=== PATIENT | male | born 1990 | race Hispanic/Latino ===

== ENCOUNTER 2018-04-01 23:09 | Emergency (ER) | payer BC, OTHER ==
[~2018-04-01] VITALS: Ht 170.2 cm; Wt 90.7 kg
[2018-04-01 23:41] LABS: BILIRUBIN,URINE NEGATIVE (NEGATIVE); CLARITY,URINE CLEAR (CLEAR); COLOR,URINE YELLOW (YELLOW); KETONES,URINE NEGATIVE (NEGATIVE); LEUKOCYTE ESTERASE ,URINE NEGATIVE (NEGATIVE); NITRITE,URINE NEGATIVE (NEGATIVE); PROTEIN,URINE DIPSTICK NEGATIVE (NEGATIVE); URINE UROBILINOGEN 0.2 mg/dL (0.2 - 1)
[2018-04-01 23:56] LABS: WBC,URINE (MAN) 0-5 /HPF (0-5)
[2018-04-01 23:57] LABS: BACTERIA,URINE MODERATE /HPF; EPITHELIAL CELLS,URINE FEW /LPF
--- NOTE | 2018-04-02 01:17 | Diagnostic Imaging Report ---
EXAM: US TESTICULAR, US TESTICULAR DOPPLER LTD DATE: 04/01/2018 12:00 AM INDICATION: Left testicular pain, patient sustained injury after fall at work in October COMPARISON: None TECHNIQUE: Grayscale and color Doppler images of the testicles and scrotal contents were obtained. Duplex imaging with spectral waveform analysis was used to assess the bilateral testicular arterial and venous flow. FINDINGS: RIGHT: The right testicle measures 4.3 x 2 x 2.7 cm. No testicular masses. Normal flow by color doppler and spectral waveform analysis of the right arterial and venous testicular flow. Normal appearance of the epididymis. Small right hydrocele. LEFT: The left testicle is enlarged and heterogeneous with multiple areas of hypo and hyper echogenicity and cystic spaces. The testicle measures 5.9 x 3.8 x 5 cm. The epididymis is poorly visualized. In spite of a heterogeneous appearance of the testicle, normal color flow and spectral waveform analysis of arterial and venous flow is identified. Small right hydrocele. IMPRESSION: Appearance of left testicle is consistent with prior testicular fracture. There is persistent testicular venous flow to the left testicle both centrally and peripherally. Signed by: Dr. Elena Amaral M.D. on 04/02/2018 1:14 AM
[2018-04-02 01:39] VITALS: BP 130/90
== END 2018-04-02 01:43 | disposition home or self-care (01) ==
LOC: ER 23:09
DX: N50.812 Left testicular pain (principal)
CPT/HCPCS: 76870; 81001; 93976; 99283

== ENCOUNTER 2018-12-14 23:09 | Emergency (ER) | payer BC ==
[~2018-12-14] VITALS: Ht 170.2 cm; Wt 90.7 kg
--- OUTSIDE RECORDS SUMMARY | 2018-12-14 23:13 | XMS REPORT | Clinical Summary ---
Author Author [facility] Organization [facility] Address Unknown Phone Unavailable Care Team Providers Care Dispatcher [employer] Disposal Name Role Phone Pcp, No PCP Unavailable Allergies Comments Active Allergy Reactions Severity Noted Date TOLD WHEN HE WAS A KID. Cefprozil Rash Low 05/29/2018 Medications End Date Status Medication Sig Dispensed Refills Start Date 06/05/2018 sulfamethoxazole-trimetho Take 1 tablet 10 tablet 0 prim (BACTRIM DS) 800-160 (160 mg of 8 mg per tablet trimethoprim total) by mouth 2 (two) times daily for 5 days. 06/10/2018 acetaminophen-codeine Take 1 tablet 30 tablet 0 (TYLENOL #3) 300-30 mg by mouth 8 per tablet every 4 (four) hours as needed for up to 10 days. Max Daily Amount: 6 tablets 06/10/2018 docusate sodium (COLACE) Take 1 30 capsule 0 100 MG capsule capsule (100 8 mg total) by mouth 2 (two) times daily for 10 days. Active Problems Problem Noted Date Testicular disorder 05/30/2018 Testis mass 05/30/2018 Encounters Care Team Description Date Type Specialty 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 Hospital Computed Tomography Encounter 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 Outside Orders Central Scheduling Hollis Duque MD 05/30/2018 Anesthesia Event Steve Ba MD ORCHIECTOMY 05/30/2018 Surgery Steve Ba MD 05/30/2018 [facility] General Internal Medicine - Encounter 05/31/2018 Ivon Mason Preadmit Phone 05/29/2018 Hospital Pre-Admission Testing Encounter after 12/13/2017 Social History Date Tobacco Use Types Packs/Day Years Used Never Smoker Smokeless Tobacco: Never Used Alcohol Use Drinks/Week oz/Week Comments Yes SOCIALLY Sex Assigned at Date Recorded Not on file Industry Job Start Date Occupation Not on file Not on file Not on file Travel End Travel History Travel Start No recent travel history available. Last Filed Vital Signs Time Taken Vital Sign Reading 05/31/2018 11:35 AM CDT Blood Pressure 111/64 05/31/2018 11:35 AM CDT Pulse 84 05/31/2018 11:35 AM CDT Temperature 36.1 C (96.9 F) 05/31/2018 11:35 AM CDT Respiratory Rate 18 05/31/2018 11:35 AM CDT Oxygen Saturation 98% - Inhaled Oxygen - Concentration 05/30/2018 12:58 PM CDT Weight 89.5 kg (197 lb 5 oz) 05/30/2018 12:58 PM CDT Height 170.2 cm (5' 7.01") 05/30/2018 12:58 PM CDT Body Mass Index 30.9 Plan of Treatment Not on file Procedures Comments Procedure Name Priority Date/Time Associated Diagnosis CT CHEST WITH IV CONTRAST Routine 10/05/2018 Germ cell tumor of testis 8:26 AM CERTIFIED ALCOHOL DRUG COUNSELOR (HCC) CT ABDOMEN/PELVIS WITH IV Routine 10/05/2018 Germ cell tumor of testis CONTRAST 8:26 AM CERTIFIED ALCOHOL DRUG COUNSELOR (HCC) TISSUE EXAM AP Routine 05/30/2018 4:23 PM CDT ORCHIECTOMY 05/30/2018 Testicular disorder 3:00 PM CDT Malignant neoplasm of testis, unspecified laterality, unspecified whether descended or undescended (HCC) after 12/13/2017 Results * CT Abdomen/Pelvis with IV Contrast (10/05/2018 8:26 AM CERTIFIED ALCOHOL DRUG COUNSELOR) Specimen Narrative Performed At [facility] EXAM: CT Chest, Abdomen and Pelvis WITH contrast INDICATION: Testicular [id number] COMPARISON: CT May 29, 2018 TECHNIQUE: Chest, abdomen and pelvis were scanned utilizing a multidetector helical scanner from the lung apex to the pubic symphysis after administration of IV contrast. Coronal and sagittal reformations were obtained. Routine protocol was performed. Scan was performed when during portal venous phase. IV CONTRAST: 150 mL of Omnipaque 300 ORAL CONTRAST: Water COMPLICATIONS: None RADIATION DOSE: Total DLP: 1122 mGy*cm Estimated effective dose: (DLP x 0.015 x size factor) mSv CTDIvol has been reviewed. It is below the limits set by the Radiation Protocol Committee (RPC). FINDINGS: LINES and TUBES: None. LUNGS AND AIRWAYS:Calcified granuloma left lower lobe. No metastatic nodule.Airways are normal. PLEURA: The pleural spaces are clear. HEART AND MEDIASTINUM: The thyroid gland is normal.No mediastinal, hilar or axillary lymphadenopathy.The heart is normal in size. There is no pericardial effusion. HEPATOBILIARY:No focal hepatic lesions.No biliary ductal dilation. GALLBLADDER: No radio-opaque stones or sludge.No wall thickening. SPLEEN: No splenomegaly. PANCREAS: No focal masses or ductal dilatation. ADRENALS: No adrenal nodules KIDNEYS/URETERS: Kidneys enhance symmetrically.No hydronephrosis. No cystic or solid mass lesions.No stones. GI TRACT: No abnormal distention, wall thickening, or bowel obstruction. Appendix is normal. PELVIC ORGANS/BLADDER: Unremarkable. LYMPH NODES: No lymphadenopathy. VESSELS: Unremarkable. PERITONEUM / RETROPERITONEUM: No free air or fluid. BONES: Unremarkable. SOFT TISSUES: Post surgical change left inguinal region. IMPRESSION: 1.No lymphadenopathy or metastasis Signed: Efrem Staley MD Report Verified Date/Time:10/05/2018 09:14:33 Procedure Note Interface, External Ris In - 10/05/2018 9:16 AM CERTIFIED ALCOHOL DRUG COUNSELOR FINAL REPORT EXAM: CT Chest, Abdomen and Pelvis WITH contrast INDICATION: Testicular cancer C62.90 COMPARISON: CT May 29, 2018 TECHNIQUE: Chest, abdomen and pelvis were scanned utilizing a multidetector helical scanner from the lung apex to the pubic symphysis after administration of IV contrast. Coronal and sagittal reformations were obtained. Routine protocol was performed. Scan was performed when during portal venous phase. IV CONTRAST: 150 mL of Omnipaque 300 ORAL CONTRAST: Water COMPLICATIONS: None RADIATION DOSE: Total DLP: 1122 mGy*cm Estimated effective dose: (DLP x 0.015 x size factor) mSv CTDIvol has been reviewed. It is below the limits set by the Radiation Protocol Committee (RPC). FINDINGS: LINES and TUBES: None. LUNGS AND AIRWAYS: Calcified granuloma left lower lobe. No metastatic nodule. Airways are normal. PLEURA: The pleural spaces are clear. HEART AND MEDIASTINUM: The thyroid gland is normal. No mediastinal, hilar or axillary lymphadenopathy. The heart is normal in size. There is no pericardial effusion. HEPATOBILIARY: No focal hepatic lesions. No biliary ductal dilation. GALLBLADDER: No radio-opaque stones or sludge. No wall thickening. SPLEEN: No splenomegaly. PANCREAS: No focal masses or ductal dilatation. ADRENALS: No adrenal nodules KIDNEYS/URETERS: Kidneys enhance symmetrically. No hydronephrosis. No cystic or solid mass lesions. No stones. GI TRACT: No abnormal distention, wall thickening, or bowel obstruction. Appendix is normal. PELVIC ORGANS/BLADDER: Unremarkable. LYMPH NODES: No lymphadenopathy. VESSELS: Unremarkable. PERITONEUM / RETROPERITONEUM: No free air or fluid. BONES: Unremarkable. SOFT TISSUES: Post surgical change left inguinal region. IMPRESSION: 1.No lymphadenopathy or metastasis Signed: Efrem Staley MD Report Verified Date/Time: 10/05/2018 09:14:33 Performing Organization Address City/State/Zipcode Phone Number [facility] * CT Chest with IV Contrast (10/05/2018 8:26 AM CERTIFIED ALCOHOL DRUG COUNSELOR) Specimen Narrative Performed At FINAL REPORT [facility] EXAM: CT Chest, Abdomen and Pelvis WITH contrast INDICATION: Testicular [id number] COMPARISON: CT May 29, 2018 TECHNIQUE: Chest, abdomen and pelvis were scanned utilizing a multidetector helical scanner from the lung apex to the pubic symphysis after administration of IV contrast. Coronal and sagittal reformations were obtained. Routine protocol was performed. Scan was performed when during portal venous phase. IV CONTRAST: 150 mL of Omnipaque 300 ORAL CONTRAST: Water COMPLICATIONS: None RADIATION DOSE: Total DLP: 1122 mGy*cm Estimated effective dose: (DLP x 0.015 x size factor) mSv CTDIvol has been reviewed. It is below the limits set by the Radiation Protocol Committee (RPC). FINDINGS: LINES and TUBES: None. LUNGS AND AIRWAYS:Calcified granuloma left lower lobe. No metastatic nodule.Airways are normal. PLEURA: The pleural spaces are clear. HEART AND MEDIASTINUM: The thyroid gland is normal.No mediastinal, hilar or axillary lymphadenopathy.The heart is normal in size. There is no pericardial effusion. HEPATOBILIARY:No focal hepatic lesions.No biliary ductal dilation. GALLBLADDER: No radio-opaque stones or sludge.No wall thickening. SPLEEN: No splenomegaly. PANCREAS: No focal masses or ductal dilatation. ADRENALS: No adrenal nodules KIDNEYS/URETERS: Kidneys enhance symmetrically.No hydronephrosis. No cystic or solid mass lesions.No stones. GI TRACT: No abnormal distention, wall thickening, or bowel obstruction. Appendix is normal. PELVIC ORGANS/BLADDER: Unremarkable. LYMPH NODES: No lymphadenopathy. VESSELS: Unremarkable. PERITONEUM / RETROPERITONEUM: No free air or fluid. BONES: Unremarkable. SOFT TISSUES: Post surgical change left inguinal region. IMPRESSION: 1.No lymphadenopathy or metastasis Signed: Efrem Staley MD Report Verified Date/Time:10/05/2018 09:14:33 Procedure Note Interface, External Ris In - 10/05/2018 9:16 AM CERTIFIED ALCOHOL DRUG COUNSELOR FINAL REPORT EXAM: CT Chest, Abdomen and Pelvis WITH contrast INDICATION: Testicular cancer C62.90 COMPARISON: CT May 29, 2018 TECHNIQUE: Chest, abdomen and pelvis were scanned utilizing a multidetector helical scanner from the lung apex to the pubic symphysis after administration of IV contrast. Coronal and sagittal reformations were obtained. Routine protocol was performed. Scan was performed when during portal venous phase. IV CONTRAST: 150 mL of Omnipaque 300 ORAL CONTRAST: Water COMPLICATIONS: None RADIATION DOSE: Total DLP: 1122 mGy*cm Estimated effective dose: (DLP x 0.015 x size factor) mSv CTDIvol has been reviewed. It is below the limits set by the Radiation Protocol Committee (RPC). FINDINGS: LINES and TUBES: None. LUNGS AND AIRWAYS: Calcified granuloma left lower lobe. No metastatic nodule. Airways are normal. PLEURA: The pleural spaces are clear. HEART AND MEDIASTINUM: The thyroid gland is normal. No mediastinal, hilar or axillary lymphadenopathy. The heart is normal in size. There is no pericardial effusion. HEPATOBILIARY: No focal hepatic lesions. No biliary ductal dilation. GALLBLADDER: No radio-opaque stones or sludge. No wall thickening. SPLEEN: No splenomegaly. PANCREAS: No focal masses or ductal dilatation. ADRENALS: No adrenal nodules KIDNEYS/URETERS: Kidneys enhance symmetrically. No hydronephrosis. No cystic or solid mass lesions. No stones. GI TRACT: No abnormal distention, wall thickening, or bowel obstruction. Appendix is normal. PELVIC ORGANS/BLADDER: Unremarkable. LYMPH NODES: No lymphadenopathy. VESSELS: Unremarkable. PERITONEUM / RETROPERITONEUM: No free air or fluid. BONES: Unremarkable. SOFT TISSUES: Post surgical change left inguinal region. IMPRESSION: 1.No lymphadenopathy or metastasis Signed: Efrem Staley MD Report Verified Date/Time: 10/05/2018 09:14:33 Performing Organization Address City/State/Zipcode Phone Number [facility] * Tissue Exam (05/30/2018 4:23 PM CDT) Case Report Surgical Pathology [facility] Report [facility] Case: [id number] Authorizing Provider:Steve Ba MDCollected: 05/30/2018 1623 Ordering Location: [facility] PERIOPERATIVE Received: 05/30/2018 1713 SERVICES Pathologist: Cale Whiteside MD Specimens: A) - Testis, Left B) - Lymph Node, Inguinal, Left, LEFT SUPERFICIAL INGUINAL LYMPH NODE DIAGNOSIS A. TESTICLE, LEFT, RADICAL 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 LYMPH NODES, LEFT SUPERFICIAL INGUINAL, DISSECTION: - TWO BENIGN LYMPH NODES (0/2) Signing Pathologist Direct Phone Line: [phone] COMMENT The tumor is 70% seminioma, [facility] 10% immature teratoma, 10% [facility] embryonal carcinoma and 10% yolk sac tumor. SYNOPTIC REPORT TESTIS: Radical [facility] Orchiectomy(Testis Radical [facility] - All Specimens) CLINICAL Pre-Orchiectomy Serum Tumor Markers:Alpha-fetoprot ein (AFP) elevation Pre-Orchiectomy Serum Tumor Markers:Beta-subunit of human chorionic gonadotropin (b-hCG) elevation Post-Orchiectomy Serum Tumor Markers:Unknown Serum Tumor Markers (S):S1 SPECIMEN Specimen Laterality:Left TUMOR Histologic Type:Mixed germ cell tumor :Seminoma (percentage): 70 % :Embryonal carcinoma (percentage): 10 % :Yolk sac tumor, postpubertal type (percentage): 10 % :Teratoma (percentage): 10 % Tumor Size:Greatest dimension of main tumor mass in Centimeters (cm): 6.3 Centimeters (cm) Additional Dimension in Centimeters (cm):5.5 Centimeters (cm) Additional Dimension in Centimeters (cm):4 Centimeters (cm) Greatest Dimension of Additional Tumor Nodule in Centimeters (cm):Not applicable Tumor Focality:Unifocal Tumor Extent: Tumor Extension:Tumor limited to testis Accessory Findings: Lymphovascular Invasion:Not identified MARGINS Spermatic Cord Margin:Uninvolved by tumor LYMPH NODES Number of Lymph Nodes Involved:0 Number of Lymph Nodes Examined:2 PATHOLOGIC STAGE CLASSIFICATION (pTNM, AJCC 8th Edition) TNM Descriptors:Not applicable Primary Tumor (pT):pT1 Regional Lymph Nodes (pN):pN0 ADDITIONAL FINDINGS 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 neoplasm of testis [facility] SPECIMEN SOURCE A. Left testis; B. Left [facility] superficial inguinal lymph [facility] node GROSS DESCRIPTION Part A is received fresh for [facility] tumor banking labeled "left [facility] testis" and consists of a 124.70 gm, 6.5 x 4.0 x 5.5 cm testis with attached spermatic cord measuring 8.0 x 1.0 cm. The epididymis measures 5.5 x 2.5 cm. The epididymis and spermatic cord appear unremarkable. The external surface of the testis is enlarged and firm. The specimen is bivalved to reveal a parish-white fleshy tumor comprising more than 95% of the testicular volume and measuring 5.5 x 6.3 x 4.0 cm. The tumor appears well-circumscribed and confined to the testis. Upon serial sectioning, there are two discrete areas within the tumor, one is red-brown and fleshy measuring 0.6 x 0.5 x 0.5 cm. The other is parish-yellow and firm measuring 0.7 x 0.5 x 0.5 cm. The remainder of the tumor is fleshy and homogeneous. Call Centre Supervisor sections are submitted as follows: A1, spermatic cord margin; A2, tumor to normal including epididymis and external surface; A3, tumor including inked external surface; A4-A5, tumor with red-brown fleshy nodule; A6-A7, tumor with parish-yellow firm nodule; A8, media sales representative tumor; A9-A11, tumor to normal testis (A11 includes epididymis); A12, media sales representative spermatic cord section. Part B: Received in formalin labeled "left inguinal lymph node" is a 2.0 x 1.2 x 0.6 cm parish-red soft tissue specimen. Within the specimen, two possible lymph nodes are identified. The largest lymph node measures 1.0 x 0.7 x 0.6 cm. The smaller lymph node measures 0.8 x 0.6 x 0.5 cm. The specimen is submitted entirely as follows: B1, one lymph node, bisected; B2, one lymph node and remaining soft tissue. SB/pl MICROSCOPIC DESCRIPTION Performed. [facility] Specimen Tissue Tissue - Lymph Node, Inguinal, Left Performing Organization Address City/State/Zipcode Phone Number [facility] [address] [place] [address] MEDICAL CENTER after 12/13/2017 Insurance Payer Benefit Subscriber ID Type Phone Address Plan / Group BLUE CROSS/BLUE [employer] PPO xxxxxxxxxxxx O [phone] [address] [place] [address] CHOICE Advance Directives For more information, please contact: [address] [address] Date Inactivated Comments Code Status Date Activated Full Code 05/30/2018 5:11 PM This code status was determined by: Patient
--- OUTSIDE RECORDS SUMMARY | 2018-12-14 23:13 | XMS REPORT ---
Author Author [facility] Address Unknown Phone Unavailable Care Team Providers Care Application Specialist Name Role Phone HARRIS STEVE Unavailable Unavailable Rachel DEAN Unavailable Unavailable Payers Payer Name Policy Type Policy Number Effective Date Expiration Date Problems This patient has no known problems. Allergies, Adverse Reactions, Alerts Allergy Name Allergy Type Status Severity Reaction(s) Onset Date Inactive Date Treating Clinician Comments cefprozil DA Active [place] 2018-09-19 00:00:00 cefprozil DA Active MO 2016-05-06 00:00:00 Medications This patient has no known medications. Results Test Description Test Time Test Comments Text Results Atomic Results Result Comments CT, ABDOMEN 2018-10-05 09:14:00 FINAL REPORT EXAM: CT Chest, Abdomen and Pelvis WITH contrast INDICATION: Testicular cancer C62.90 COMPARISON: CT May 29, 2018TECHNIQUE: Chest, abdomen and pelvis were scanned utilizing [...] 1.No lymphadenopathy or metastasis Signed: Efrem Staley MDRort Verified Date/Time: 10/05/2018 09:14:33 , CHEST, WITH IV CONTRAST 2018-10-05 09:14:00 FINAL REPORT EXAM: CT Chest, Abdomen and Pelvis WITH contrast INDICATION: Testicular cancer C62.90 COMPARISON: CT May 29, 2018TECHNIQUE: Chest, abdomen and pelvis were scanned utilizing [...] adrenal nodules KIDNEYS/URETERS: Kidneys enhance symmetrically. No hyd ronephrosis. No cystic or solid mass lesions. No stones. GI TRACT: No abnormal distention, wall thickening, or bowel obstruction. Appendix is normal. PELVIC ORGANS/BLADDER: Unremarkable. LYMPH NODES: No lymphadenopathy. VESSELS: Unremarkable. PERITONEUM / RETROPERITONEUM: No free air or fluid. BONES: Unremarkable. SOFT TISSUES: Post surgical change left inguinal region. IMPRESSION: 1.No lymphadenopathy or metastasis Signed: Efrem Staley MDReport Verified Date/Time: 10/05/2018 09:14:33 UE EXAM 2018-06-05 16:46:00 Surgical Pathology Report Case: [id number] Authorizing Provider: Steve Ba MD Collected: 05/30/2018 1623 Ord ering Location: [facility] PERI[facility] Received: 05/30/2018 1713 SERVICES Pathologist: Cale Whiteside MD Specimens: A) - Testis, Left B) - Lymph Node, Inguinal, Left, LEFT SUPERFICIAL INGUINAL LYMPH NODE A. 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 LYMPH NODES, LEFT SUPERFICIAL INGUINAL, DISSECTION:- TWO BENIGN LYMPH NODES (0/2) Signing Pathologist Direct Phone Line: [phone] signed by Cale Whiteside MD on 06/05/2018 at 4:46 PMThe tumor is 70% seminioma, 10% immature teratoma, 10% embryonal carcinoma and 10% yolk sac tumor. TESTIS: Radical Orchiectomy (Testis Radical - All Specimens)CLINICAL Pre-Orchiectomy Serum Tumor Markers: Alpha-fetoprotein (AFP) elevation Pre-Orchiectomy Serum Tumor Markers: Beta-subunit of human chorionic gonadotropin (b-hCG) elevation Post-Orchiectomy Serum Tumor Markers: Unknown Serum Tumor Markers (S): S1 SPECIMEN Specimen Laterality: Left TUMOR Histologic Type: Mixed germ cell tumor : Seminoma (percentage): 70 % : Embryonal carcinoma (percentage): 10 % : Yolk sac tumor, postpubertal type (percentage): 10 % : Teratoma (percentage): 10 % Tumor Size: Greatest dimension of main tumor mass in Centimeters (cm): 6.3 Centimeters (cm) Additional Dimension in Centimeters (cm): 5.5 Centimeters (cm) Additional Dimension in Centimeters (cm): 4 Centimeters (cm) Greatest Dimension of Additional Tumor Nodule in Centimeters (cm): Not applicable Tumor Focality: Unifocal Tumor Extent: Tumor Extension: Tumor limited to testis Accessory Findings: Lymphovascular Invasion: Not identified MARGINS Spermatic Cord Margin: Uninvolved by tumor LYMPH NODES Number of Lymph Nodes Involved: 0 Number of Lymph Nodes Examined: 2 PATHOLOGIC STAGE CLASSIFICATION (pTNM, AJCC 8th Edition) TNM Descriptors: Not applicable Primary Tumor (pT): pT1 Regional Lymph Nodes (pN): pN0 ADDITIONAL FINDINGS Additional Pathologic Findings: 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 Left testis; B. Left superficial inguinal lymph nodePart A is received fresh for tumor banking labeled "left testis" and consists of a 124.70 gm, [...] of the tumor is fleshy and homogeneous. Shipyard Painter sections are submitted as follows:A1, spermatic cord margin; A2, tumor to normal including epididymis and external surface; A3, tumor including inked external surface; A4-A5, tumor with red-brown fleshy nodule; A6- A7, tumor with parish-yellow firm nodule; A8, indirect sales representative tumor; A9-A11, tumor to normal testis (A11 includes epididymis); A12, indirect sales representative spermatic cord section. Part B: [...] one lymph node and remaining soft tissue. SB/plPerformed. US TESTICULAR DOPPLER LTD 2018-04-02 01:06:00 [place] [address] Patient Name: TOPHER COFFMAN MR #: [id number] : 1990 Age/Sex: 27/M Req #: [id number] Adm Physician: Ordered by: STEVE DEAN MD Report #: [id number] Location: ER Room/Bed: Procedure: [id number] US/US TESTICULAR DOPPLER LTD Exam Date: Exam Time: REPORT STATUS: Signed EXAM: US TESTICULAR, US TESTICULAR DOPPLER LTD DATE: 04/01/2018 12:00 AM INDICATION: Left testicular pain, patient sustained injury after fall at work in October COMPARISON: None TECHNIQUE: Grayscale and color Doppler images of the testicles and scrotal contents were obtained. Duplex imaging with spectral waveform analysis was used to assess the bilateral testicular arterial and venous flow. FINDINGS: RIGHT: The right testicle measures 4.3 x 2 x 2.7 cm. No testicular masses. Normal flow by color doppler and spectral waveform analysis of the right arterial and venous testicular flow. Normal appearance of the epididymis. Small right hydrocele. LEFT: The left testicle is enlarged and heterogeneous with multiple areas of hypo and hyper echogenicity and cystic spaces. The testicle measures 5.9 x 3.8 x 5 cm. The epididymis is poorly visualized. In spite of a heterogeneous appearance of the testicle, normal color flow and spectral waveform analysis of arterial and venous flow is identified. Small right hydrocele. IMPRESSION: Appearance of left testicle is consistent with prior testicular fracture. There is persistent testicular venous flow to the left testicle both centrally and peripherally. Signed by: Dr. Dimitri Amaral M.D. on 04/02/2018 1:14 AM Dictated By: DIMITRI AMARAL MD 3 Transcribed By: SHAKIRA on 04/02/18113 COPY TO: STEVE DEAN MD TESTICULAR 2018-04-02 01:06:00 [place] [address] Patient Name: TOPHER COFFMAN MR #: [id number] : 1990 Age/Sex: 27/M Req #: [id number] Adm Physician: Ordered by: STEVE DEAN MD Report #: [id number] Location: ER Room/Bed: Procedure: [id number] US/US TESTICULAR Exam Date: Exam Time: REPORT STATUS: Signed EXAM: US TESTICULAR, US TESTICULAR DOPPLER LTD DATE: 04/01/2018 12:00 AM INDICATION: Left testicular pain, patient sustained injury after fall at work in October COMPARISON: None TECHNIQUE: Grayscale and color Doppler images of the testicles and scrotal contents were obtained. Duplex imaging with spectral waveform analysis was used to assess the bilateral testicular arterial and venous flow. FINDINGS: RIGHT: The right testicle measures 4.3 x 2 x 2.7 cm. No testicular masses. Normal flow by color doppler and spectral waveform analysis of the right arterial and venous testicular flow. Normal appearance of the epididymis. Small right hydrocele. LEFT: The left testicle is enlarged and heterogeneous with multiple areas of hypo and hyper echogenicity and cystic spaces. The testicle measures 5.9 x 3.8 x 5 cm. The epididymis is poorly visualized. In spite of a heterogeneous appearance of the testicle, normal color flow and spectral waveform analysis of arterial and venous flow is identified. Small right hydrocele.
[2018-12-15 00:16] LABS: CLARITY,URINE CLEAR (CLEAR); COLOR,URINE YELLOW (YELLOW)
[2018-12-15 00:17] LABS: BACTERIA,URINE FEW /HPF; BILIRUBIN,URINE NEGATIVE (NEGATIVE); EPITHELIAL CELLS,URINE FEW /LPF; KETONES,URINE NEGATIVE (NEGATIVE); LEUKOCYTE ESTERASE ,URINE NEGATIVE (NEGATIVE); NITRITE,URINE NEGATIVE (NEGATIVE); PROTEIN,URINE DIPSTICK NEGATIVE (NEGATIVE); URINE UROBILINOGEN 0.2 mg/dL (0.2 - 1); WBC,URINE (MAN) 0-5 /HPF (0-5)
--- NOTE | 2018-12-15 01:06 | Diagnostic Imaging Report ---
EXAMINATION: Scrotal ultrasound CLINICAL INDICATION: Right testicular pain, history of left orchiectomy April 2018 for testicular neoplasm. COMPARISON: Testicular ultrasound 04/01/2018. TECHNIQUE: Grayscale and color Doppler evaluation of the scrotum was performed in transverse and longitudinal planes. FINDINGS: The right testicle measures 3.2 x 2.2 x 3.4 cm. There are no masses or calcifications.. The right epididymis measures 1.3 x 1.0 x 0.8 cm. Stable 0.6 x 0.4 x 0.5 cm and 0.2 x 0.3 x 0.3 cm cystic, anechoic lesions in the epididymal head.. There is no evidence of right hydrocele or varicocele. There is normal arterial and venous flow to the right testicle, without evidence of torsion. The left testicle is absent. No solid mass is noted in the left scrotum. No evidence of inguinal hernia. Scrotal skin has a normal appearance, without focal lesions. Impression: 1. Unremarkable right testicle, without focal lesions. Normal arterial and venous flow with low likelihood of torsion. 2. Status post left orchiectomy. No echogenic soft tissue in the left scrotum to suggest residual or recurrent tumor. 3. Stable right epididymal head simple cysts versus spermatoceles. Signed by: Dr. Misael Peoples M.D. on 12/15/2018 1:03 AM
== END 2018-12-15 01:35 | disposition home or self-care (01) ==
LOC: ER 23:09
DX: N50.811 Right testicular pain (principal); N50.89 Other specified disorders of the male genital organs; Z85.47 Personal history of malignant neoplasm of testis
CPT/HCPCS: 76870; 81001; 93976; 99283

== ENCOUNTER 2019-02-15 20:53 | Emergency (ER) | payer BC ==
[~2019-02-15] VITALS: Ht 170.2 cm; Wt 90.7 kg
--- OUTSIDE RECORDS SUMMARY | 2019-02-15 20:57 | XMS REPORT | Clinical Summary ---
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) 09/07/2018 Outside Orders Central Scheduling Hollis Duque MD 05/30/2018 Anesthesia Event Steve Ba MD ORCHIECTOMY 05/30/2018 Surgery Steve Ba MD 05/30/2018 [facility] General Internal Medicine - Encounter 05/31/2018 Ivon Mason Preadmit Phone 05/29/2018 Hospital Pre-Admission Testing Encounter after 02/14/2018 Social History Date Tobacco Use Types Packs/Day [...] Germ cell tumor of testis 8:26 AM [facility] (HCC) CT ABDOMEN/PELVIS WITH IV Routine 10/05/2018 Germ cell tumor of testis CONTRAST 8:26 AM [facility] (HCC) TISSUE EXAM AP Routine 05/30/2018 4:23 PM CDT ORCHIECTOMY 05/30/2018 Testicular disorder 3:00 PM CDT Malignant neoplasm of testis, unspecified laterality, unspecified whether descended or undescended (HCC) after 02/14/2018 Results * CT Abdomen/Pelvis with IV Contrast (10/05/2018 8:26 AM [facility]) Specimen Narrative Performed At [facility]AL [facility] EXAM: CT Chest, Abdomen and Pelvis WITH contrast INDICATION: Testicular berfrbS08.90 COMPARISON: CT May 29, 2018 TECHNIQUE: Chest, [...] External Ris In - 10/05/2018 9:16 AM [facility] FINAL REPORT EXAM: CT Chest, Abdomen and [...] 09:14:33 Performing Organization Address City/State/Zipcode Phone Number [facility] * CT Chest with IV Contrast (10/05/2018 8:26 AM [facility]) Specimen Narrative Performed At FINAL REPORT [facility] EXAM: CT Chest, Abdomen and Pelvis WITH contrast INDICATION: Testicular axljroT57.90 COMPARISON: CT May 29, 2018 TECHNIQUE: Chest, [...] External Ris In - 10/05/2018 9:16 AM [facility] FINAL REPORT EXAM: CT Chest, Abdomen and [...] 4:23 PM CDT) Case Report Surgical Pathology [facility] Report [facility] Case: [id number] Authorizing Provider:Steve Ba MDCollected: 05/30/2018 1623 Ordering Location: [facility] PERIOPER[facility] Received: 05/30/2018 1713 SERVICES Pathologist: Cale Whiteside MD Specimens: A) - Testis, Left B) - Lymph Node, Inguinal, Left, LEFT SUPERFICIAL INGUINAL LYMPH NODE DIAGNOSIS A. 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 LYMPH NODES, LEFT SUPERFICIAL INGUINAL, DISSECTION: - TWO BENIGN LYMPH NODES (0/2) Signing Pathologist Direct Phone Line: [phone] COMMENT The tumor is 70% seminioma, [facility] 10% immature teratoma, 10% [facility] embryonal carcinoma and 10% yolk sac tumor. SYNOPTIC REPORT TESTIS: Radical [facility] Orchiectomy(Testis Radical [facility] - All Specimens) CLINICAL Pre-Orchiectomy Serum [...] cell neoplasia in situ (GCNIS) CPT Code(s) 86713, 177[address] [facility] CLINICAL HISTORY Testicular disorder, malignant [facility] neoplasm of testis [facility] SPECIMEN SOURCE A. Left testis; B. Left [facility] superficial inguinal lymph [facility] node GROSS DESCRIPTION Part A is received fresh for [facility] tumor banking labeled "left [facility] testis" and consists of a 124.70 [...] of the tumor is fleshy and homogeneous. Feller Seam Operator sections are submitted as follows: A1, spermatic cord margin; A2, tumor to normal including epididymis and external surface; A3, tumor including inked external surface; A4-A5, tumor with red-brown fleshy nodule; A6-A7, tumor with parish-yellow firm nodule; A8, public utilities sales representative tumor; A9-A11, tumor to normal testis (A11 includes epididymis); A12, public utilities sales representative spermatic cord section. Part B: [...] remaining soft tissue. SB/pl MICROSCOPIC DESCRIPTION Performed. [facility] Specimen Tissue Tissue - Lymph Node, Inguinal, Left Performing Organization Address City/State/Zipcode Phone Number [facility] [address] [place] [address] [facility]ICAL [facility]ENTER after 02/14/2018 Insurance Payer Benefit Subscriber ID Type Phone Address Plan / Group BLUE CROSS/BLUE SHIELD [facility] PPO xxxxxxxxxxxx O [phone] [address] [place] [address] CHOICE Advance Directives For more information, please contact: [address] [address] Date Inactivated Comments Code Status Date Activated Full Code 05/30/2018 5:11 PM This code status was determined by: Patient
[2019-02-15 21:57] LABS: BASOPHILS % 0.5 % (0.0-1.0); EOSINOPHILS # (AUTO) 0.2 (0.0-0.4); EOSINOPHILS % 2.5 % (0.0-6.0); HEMATOCRIT 42.5 % (38.2-49.6); HEMOGLOBIN 13.9 g/dL (14.0-18.0); LYMPHOCYTES # (AUTO) 2.6 (1.0-3.2); LYMPHOCYTES % 32.4 % (18.0-39.1); MEAN CORPUSCULAR HEMOGLOBIN 27.2 pg (28-32); MEAN CORPUSCULAR HGB CONC 32.7 g/dL (31-35); MEAN CORPUSCULAR VOLUME 83.2 fL (81-99); MONOCYTES # (AUTO) 0.8 (0.2-0.8); MONOCYTES % 10.3 % (4.4-11.3); NEUTROPHILS # (AUTO) 4.4 (2.1-6.9); NEUTROPHILS % 54.1 % (38.7-80.0); PLATELET COUNT 252 x10e3/uL (140-360); RED BLOOD COUNT 5.11 x10e6/uL (4.3-5.7)
[2019-02-15 22:21] LABS: ALANINE AMINOTRANSFERASE 46 IU/L (0-55); ALBUMIN 4.3 g/dL (3.5-5.0); ALBUMIN/GLOBULIN RATIO 1.4 (0.8-2.0); ALKALINE PHOSPHATASE 71 IU/L (40-150); ANION GAP 13.2 mmol/L (8-16); BLOOD UREA NITROGEN 19 mg/dL (7-26); BUN/CREATININE RATIO 17 (6-25); CALCIUM 9.5 mg/dL (8.4-10.2); CARBON DIOXIDE 28 mmol/L (22-29); CHLORIDE 103 mmol/L (98-107); EST GLOMERULAR FILTRATION RATE > 60 ML/MIN (60-); GLUCOSE 84 mg/dL (74-118); POTASSIUM 3.2 mmol/L (3.5-5.1); SODIUM 141 mmol/L (136-145)
--- NOTE | 2019-02-15 22:45 | Diagnostic Imaging Report ---
SCROTAL ULTRASOUND HISTORY: Right testicular pain, history of left testicular cancer, status post left orchiectomy TECHNIQUE: Sonographic evaluation of the scrotum. Color and pulsed wave Doppler ultrasound was used to assess testicular vasculature. COMPARISON: None available. DISCUSSION: RIGHT TESTIS: The right testis measures 4.5 x 2.5 x 3.7 cm. Normal echotexture, without a focal lesion identified. LEFT TESTIS: Nonvisualized, compatible with orchiectomy. VASCULAR: Arterial wave forms detected. EPIDIDYMIDES: Right: 1.4 x 0.7 x 0.8 cm. Unremarkable. A small epididymal head cyst versus hematocele, 0.6 x 0.4 x 0.6 cm. SCROTUM: Trace right hydrocele. IMPRESSION: 1. Status post left orchiectomy. 2. Normal right testicle. 3. Trace right hydrocele. Signed by: Dr. Javed Herrera D.O., M.M.M. on 02/15/2019 10:42 PM
--- NOTE | 2019-02-15 22:57 | Diagnostic Imaging Report ---
EXAM: CT of the abdomen and pelvis WITHOUT contrast HISTORY: Pain, right flank and right testicle, history of testicular cancer and left orchiectomy COMPARISON: Images from CT of the abdomen and pelvis May 29, 2018. TECHNIQUE: The abdomen and pelvis were scanned utilizing a multidetector helical scanner. Coronal and sagittal reformats are available. PROTOCOL: Routine IV CONTRAST: None, which limits sensitivity and specificity of evaluation of the soft tissues and vascular structures. ORAL CONTRAST: None, which limits sensitivity and specificity of evaluation of the bowel. RADIATION DOSE: Total DLP: 606.39 mGy*cm Estimated effective dose: (DLP x 0.015 x size factor) Dose modulation, iterative reconstruction, and/or weight based adjustment of the mA/kV was utilized to reduce the radiation dose to as low as reasonably achievable. COMPLICATIONS: None FINDINGS: LOWER THORAX: Unremarkable. HEPATOBILIARY: No definite focal hepatic lesions. No biliary ductal dilatation. The gallbladder is unremarkable. SPLEEN: No splenomegaly. PANCREAS: No focal masses or ductal dilatation. ADRENALS: No adrenal nodule. KIDNEYS/URETERS: No hydronephrosis, stones, or solid mass lesion identified. PELVIC ORGANS/BLADDER: The urinary bladder is predominantly decompressed. PERITONEUM / RETROPERITONEUM: No free air or fluid. GI TRACT: On limited evaluation of the gastrointestinal tract, no dilation or wall thickening identified. The appendix appears normal. LYMPH NODES: No pathologically enlarged lymph nodes. Subcentimeter nonspecific mesenteric and retroperitoneal lymph nodes, most notably in the right lower quadrant. VESSELS: Appear unremarkable. BONES and JOINTS: No aggressive osseous lesion or acute fracture. SOFT TISSUES: Unremarkable. IMPRESSION: No pathologically enlarged lymph nodes, but small nonspecific retroperitoneal and mesenteric lymph nodes, most notably the right lower quadrant the abdomen, most likely secondary to an evolving infectious or inflammatory process. However, if signs and symptoms persist, recommend surveillance follow-up given the history of testicular cancer. Signed by: Dr. Javed Herrera D.O., M.M.M. on 02/15/2019 10:54 PM
[2019-02-15 23:47] LABS: BILIRUBIN,URINE NEGATIVE (NEGATIVE); CLARITY,URINE CLEAR (CLEAR); COLOR,URINE YELLOW (YELLOW); KETONES,URINE NEGATIVE (NEGATIVE); LEUKOCYTE ESTERASE ,URINE NEGATIVE (NEGATIVE); NITRITE,URINE NEGATIVE (NEGATIVE); PROTEIN,URINE DIPSTICK TRACE (NEGATIVE); URINE UROBILINOGEN 0.2 mg/dL (0.2 - 1)
[2019-02-16 00:08] LABS: EPITHELIAL CELLS,URINE FEW /LPF; MUCUS,URINE MODERATE (RARE); RBC,URINE 0-5 /HPF (0-5); WBC,URINE (MAN) 0-5 /HPF (0-5)
[2019-02-16 00:58] VITALS: BP 133/76
== END 2019-02-16 01:23 | disposition home or self-care (01) ==
LOC: ER 20:53
DX: R10.31 Right lower quadrant pain (principal); R59.1 Generalized enlarged lymph nodes; N43.3 Hydrocele, unspecified; Z85.47 Personal history of malignant neoplasm of testis
CPT/HCPCS: 36415; 74176; 76870; 80053; 81001; 85025; 93976; 99284

== ENCOUNTER 2019-11-21 15:45 | Emergency (ER) | payer BC ==
[~2019-11-21] VITALS: Ht 170.2 cm; Wt 90.7 kg
--- NOTE | 2019-11-21 16:35 | Diagnostic Imaging Report ---
EXAMINATION: CHEST SINGLE (PORTABLE) INDICATION: Chest pain COMPARISON: None FINDINGS: LINES/TUBES:None LUNGS:The lungs are well-inflated. No focal consolidation or pulmonary edema. PLEURA:No pleural effusion or pneumothorax. MEDIASTINUM:The cardiomediastinal silhouette appears normal in size and shape. BONES/SOFT TISSUES:No acute osseous injury. ABDOMEN:No free air under the diaphragm. IMPRESSION: No focal pneumonia or pulmonary edema. Signed by: Yomi Cherry MD on 11/21/2019 4:31 PM
[2019-11-21 16:41] LABS: BASOPHILS # (AUTO) 0.1 (0.0-0.1); BASOPHILS % 0.7 % (0.0-1.0); EOSINOPHILS # (AUTO) 0.3 (0.0-0.4); EOSINOPHILS % 4.1 % (0.0-6.0); HEMATOCRIT 46.2 % (38.2-49.6); HEMOGLOBIN 15.3 g/dL (14.0-18.0); LYMPHOCYTES # (AUTO) 1.8 (1.0-3.2); LYMPHOCYTES % 24.5 % (18.0-39.1); MEAN CORPUSCULAR HEMOGLOBIN 27.5 pg (28-32); MEAN CORPUSCULAR HGB CONC 33.1 g/dL (31-35); MEAN CORPUSCULAR VOLUME 83.1 fL (81-99); MONOCYTES # (AUTO) 0.6 (0.2-0.8); MONOCYTES % 8.3 % (4.4-11.3); NEUTROPHILS # (AUTO) 4.6 (2.1-6.9); NEUTROPHILS % 61.9 % (38.7-80.0); PLATELET COUNT 271 x10e3/uL (140-360); RED BLOOD COUNT 5.56 x10e6/uL (4.3-5.7); RED CELL DISTRIBUTION WIDTH 13.4 % (11.7-14.4)
[2019-11-21 16:55] LABS: ALANINE AMINOTRANSFERASE 101 IU/L (0-55); ALBUMIN 4.1 g/dL (3.5-5.0); ALBUMIN/GLOBULIN RATIO 1.2 (0.8-2.0); ALKALINE PHOSPHATASE 83 IU/L (40-150); ANION GAP 10.8 mmol/L (8-16); BLOOD UREA NITROGEN 19 mg/dL (7-26); BUN/CREATININE RATIO 19 (6-25); CARBON DIOXIDE 30 mmol/L (22-29); CHLORIDE 104 mmol/L (98-107); CREATINE KINASE 188 IU/L (30-200); CREATININE, SERUM 1.02 mg/dL (0.72-1.25); EST GLOMERULAR FILTRATION RATE > 60 ML/MIN (60-); GLUCOSE 99 mg/dL (74-118); POTASSIUM 3.8 mmol/L (3.5-5.1); SODIUM 141 mmol/L (136-145)
== END 2019-11-21 18:48 | disposition home or self-care (01) ==
LOC: ER 15:45
DX: R06.09 Other forms of dyspnea (principal); R07.89 Other chest pain; R42 Dizziness and giddiness; Z85.47 Personal history of malignant neoplasm of testis
CPT/HCPCS: 36415; 71045; 80053; 82550; 82553; 84484; 85025; 85379; 93005; 99284

== ENCOUNTER 2020-09-28 20:01 | Emergency (ER) | payer BC ==
[~2020-09-28] VITALS: Ht 170.2 cm; Wt 90.7 kg
[2020-09-28] MEDS ORDERED: PANTOPRAZOLE SOD 40 MG TABEC PO ONE ×2 (21:00)
[2020-09-28] MEDS ORDERED: DONNATAL/LIDOCAINE/MAALOX 30 ML SUSP PO SCH ×2 (21:00→21:15)
[2020-09-28] MEDS ORDERED: MAGNESIUM/ALUMINUM/SIMETHICONE 30 ML UDC PO ONE (21:00)
[2020-09-28] MEDS ORDERED: METOCLOPRAMIDE HCL 10 MG TAB PO ONE (21:00)
[2020-09-28] MEDS ORDERED: LIDOCAINE VISC 2% SOLN 15 ML UDC ONE (21:10)
[2020-09-28] MEDS ORDERED: MAGNESIUM/ALUMINUM/SIMETHICONE 30 ML UDC ONE (21:10)
[2020-09-28] MEDS ORDERED: BELLADONNA ALK/PHENOBARBITAL 5 ML UDC ONE (21:10)
[2020-09-28] MEDS ORDERED: PANTOPRAZOLE SOD 40 MG TABEC ONE (21:11)
[2020-09-28] MEDS ORDERED: PANTOPRAZOLE SO40 MG PO (21:45)
[2020-09-28 22:42] VITALS: BP 141/80
== END 2020-09-28 22:44 | disposition home or self-care (01) ==
LOC: ER 20:56
DX: R10.13 Epigastric pain (principal); K29.70 Gastritis, unspecified, without bleeding; Z85.47 Personal history of malignant neoplasm of testis; F17.210 Nicotine dependence, cigarettes, uncomplicated
CPT/HCPCS: 71046; 99283; S0164

== ENCOUNTER 2021-01-10 19:07 | Emergency (ER) | payer BC ==
[~2021-01-10] VITALS: Ht 170.2 cm; Wt 90.7 kg
[~2021-01-10 19:07] MED LIST: PANTOPRAZOLE SO40 MG PO
== END 2021-01-10 20:30 | disposition home or self-care (01) ==
LOC: ER 20:16
DX: R97.0 Elevated carcinoembryonic antigen [CEA] (principal); Z85.47 Personal history of malignant neoplasm of testis
CPT/HCPCS: 99282

== ENCOUNTER 2021-10-01 18:22 | Emergency (ER) | payer BC, OTHER ==
[~2021-10-01] VITALS: Ht 170.2 cm; Wt 97.5 kg
[2021-10-01 19:05] LABS: CLARITY,URINE CLOUDY (CLEAR); COLOR,URINE YELLOW (YELLOW); KETONES,URINE NEGATIVE (NEGATIVE); LEUKOCYTE ESTERASE ,URINE NEGATIVE (NEGATIVE); NITRITE,URINE NEGATIVE (NEGATIVE); PROTEIN,URINE DIPSTICK NEGATIVE (NEGATIVE); URINE UROBILINOGEN 0.2 mg/dL (0.2 - 1)
[2021-10-01 19:17] LABS: BACTERIA,URINE FEW /HPF; EPITHELIAL CELLS,URINE FEW /LPF; MUCUS,URINE MANY (RARE); RBC,URINE 0-5 /HPF (0-5); WBC,URINE (MAN) 0-5 /HPF (0-5)
== END 2021-10-01 21:40 | disposition home or self-care (01) ==
LOC: ER 18:29
DX: N50.811 Right testicular pain (principal); Z85.47 Personal history of malignant neoplasm of testis
CPT/HCPCS: 76870; 81001; 93976; 99283